=== PATIENT | male | born 1955 | race Caucasian/White ===

== ENCOUNTER 2020-04-01 06:15 | Outpatient (CLI) | payer OTHER | END 2020-04-01 06:50 | disposition home or self-care (01) | LOC: LAB 06:15 | DX: E11.9 Type 2 diabetes mellitus without complications (principal); E03.8 Other specified hypothyroidism ==

== ENCOUNTER 2022-10-25 16:18 | Inpatient (IN) | payer OTHER ==
[~2022-10-25] VITALS: Ht 175.3 cm; Wt 89.4 kg
[2022-10-26] MEDS ORDERED: ADIPEX-P37.5 MG PO (15:05)
[2022-10-26] MEDS ORDERED: CRESTOR10 MG PO (15:05)
[2022-10-26] MEDS ORDERED: METFORMIN HCL500 MG (15:06)
[2022-10-26] MEDS ORDERED: LOSARTAN POTASS50 MG PO (15:06)
[2022-11-02] MEDS ORDERED: CELECOXIB200 MG (08:26)
[2022-11-02] MEDS ORDERED: ANASTROZOLE1 MG (08:26)
[2022-11-02] MEDS ORDERED: METFORMIN HCL500 M4 (08:26)
[2022-11-02] MEDS ORDERED: ATORVASTATIN CA10 MG (08:26)
[2022-11-02] MEDS ORDERED: DICLOFENAC SODI75 MG (08:27)
[2022-11-03] MEDS ORDERED: PERCOCET 5-3251 EACH PO (09:49)
[2022-11-03] MEDS ORDERED: LEVSIN0.125 MG PO (09:50)
[2022-11-03] MEDS ORDERED: PEPCID AC20 MG PO (09:50)
== END 2022-11-03 13:41 | disposition home or self-care (01) | DRG 331 ==
LOC: O/R 11-01 08:20 → SURH 11-01 08:20
PROVIDERS: ADMIT Surgery; ATTEND Surgery
PROC: 0DBP4ZZ Excision of Rectum, Percutaneous Endoscopic Approach (ICD-10-PCS; 2022-11-01)
PROC: 0DJD8ZZ Inspection of Lower Intestinal Tract, Via Natural or Artificial Opening Endoscopic (ICD-10-PCS; 2022-11-01)
PROC: 0DBN4ZZ Excision of Sigmoid Colon, Percutaneous Endoscopic Approach (ICD-10-PCS; principal; 2022-11-01 15:15)
DX: K57.32 Diverticulitis of large intestine without perforation or abscess without bleeding (principal); K64.8 Other hemorrhoids; I10 Essential (primary) hypertension

== ENCOUNTER → 2022-10-26 09:23 | Outpatient (CLI) | payer OTHER ==
[~2022-10-26 09:23] MED LIST: ADIPEX-P37.5 MG PO; CRESTOR10 MG PO; LOSARTAN POTASS50 MG PO; METFORMIN HCL500 MG
== END | disposition home or self-care (01) ==
LOC: LAB 09:23
PROVIDERS: ATTEND Surgery
DX: K57.32 Diverticulitis of large intestine without perforation or abscess without bleeding (principal); K64.8 Other hemorrhoids; Z03.818 Encounter for observation for suspected exposure to other biological agents ruled out; Z20.822 Contact with and (suspected) exposure to COVID-19

== ENCOUNTER 2022-10-26 11:06 | Outpatient (CLI) | payer OTHER ==
[2022-10-26] MEDS ORDERED: CRESTOR10 MG PO (15:05)
[2022-10-26] MEDS ORDERED: ADIPEX-P37.5 MG PO (15:05)
[2022-10-26] MEDS ORDERED: LOSARTAN POTASS50 MG PO (15:06)
[2022-10-26] MEDS ORDERED: METFORMIN HCL500 MG (15:06)
== END 2022-10-26 11:08 | disposition home or self-care (01) ==
LOC: TOM 11:06
PROVIDERS: ATTEND Surgery
DX: K57.32 Diverticulitis of large intestine without perforation or abscess without bleeding (principal); K64.8 Other hemorrhoids